=== PATIENT | male | born 1965 | race Caucasian/White ===

== ENCOUNTER 2016-06-16 13:48 | Emergency (ER) | payer OTHER ==
[~2016-06-16] VITALS: Ht 175.3 cm; Wt 81.6 kg
--- NOTE | 2016-06-16 15:04 | RADIOLOGY REPORT ---
EXAMINATION: XR KNEE, RIGHT CLINICAL INFORMATION: Pain to right knee. COMPARISON: None TECHNIQUE: Four views of the right knee. FINDINGS: No acute fracture or subluxation. Compartmental joint spaces are maintained. Small joint effusion. Small tricompartmental marginal osteophytes. The soft tissues are unremarkable. IMPRESSION: Mild tricompartmental degenerative changes with small joint effusion.
[2016-06-16 15:59] VITALS: BP 140/88
[2016-06-16] MEDS ORDERED: ADVIL200 M1 PO (16:36)
--- NOTE | 2016-06-16 16:37 | ED UPPER/LOWER EXTREMITY COMPL ---
History of Present Illness General Chief Complaint: Lower Extremity Problems Stated Complaint: R KNEE PAIN X 4 WEEKS NO KNOWN INJURY Source: patient Exam Limitations: no limitations Vital Signs & Intake/Output Vital Signs & Intake/Output Vital Signs Date Time Temp Pulse Resp B/P Pulse O2 O2 Flow FiO2 Ox Delivery Rate 06/16 1700 Room Air 06/16 1559 96.9 60 140/88 06/16 1357 97.0 80 20 143/92 98 Room Air Allergies Coded Allergies: No Known Allergies (06/16/16) Reconcile Medications Ibuprofen (Advil) 200 MG CAPSULE 2 CAP PO PRN PAIN (Reported) Meloxicam (Mobic) 15 MG TABLET 1 TAB PO DAILY PRN PAIN/INFLAMMATION Triage Note: PT PRESENTS TO ER C/O OF RIGHT KNEE PAIN X 4 WEEKS. PT DENIES INJURY OR TRAUMA TO KNEE PT REFUSING PAIN MEDS AT TRIAGE Triage Nurses Notes Reviewed? yes Onset: Gradual Duration: week(s): (4) Timing: remote history Severity: mild Severity Numbers: 3 Pain/Injury Location: Right: Knee. Method of Injury: TWISTED Modifying Factors: Improves With: immobilization. Worsens With: movement. HPI: Patient is a 51-year-old male presenting to the emergency department with chief complaint of right knee pain 4 weeks. Patient reports that is on the ice and twisted his right knee 4 weeks ago. Has been experiencing pain on the medial aspect of his right knee since. Denies any falls. He's been icing with little relief. He's been taking ibuprofen without change in symptoms. Denies any numbness or tingling. Denies any radiating pain. Denies any fevers or chills nausea or vomiting. Denies any redness over the knee. History similar injury on his left knee several years ago. (JEANCARLOS ALTAMIRANO) Past History Travel History Traveled to [place] past 21 day No Medical History Any Pertinent Medical History? see below for history Neurological: NONE EENT: NONE Cardiovascular: NONE Respiratory: NONE Gastrointestinal: NONE Hepatic: NONE Renal: NONE Musculoskeletal: NONE Psychiatric: NONE Endocrine: NONE Tetanus Vaccine: 12/25/14 Surgical History Surgical History: non-contributory Psychosocial History What is your primary language Vietnamese Tobacco Use: Never used Family History Hx Contributory? No (JEANCARLOS ALTAMIRANO) Review of Systems Review of Systems Constitutional: Reports: no symptoms. Comments Review of systems: See HPI, All other systems negative. Constitutional, no chills fever or weight loss HEENT: No visual changes no sore throat no congestion Cardiovascular: No chest pain ,palpitation Skin, no jaundice no rashes Respiratory: No dyspnea cough sputum or hemoptysis GI: No nausea no vomiting Muscle skeletal: no back pain, no neck pain, Neurologic: No numbness no confusion Psych: No stress anxiety Immunology: No splenectomy or history of AIDS (JEANCARLOS ALTAMIRANO) Physical Exam Physical Exam General Appearance: well developed/nourished, no apparent distress, alert, awake , comfortable Comments: Well-developed well-nourished no apparent distress. HEENT: Atraumatic, extraocular motion intact Neck: Supple, no lymphadenopathy Back: Nontender Respiratory: No respiratory distress Extremities: No edema, full range of motion. Tender to palpation of the medial aspect of the right knee. Full range of motion of the right knee. No pain to palpation over the popliteal region of the right lower extremity. No calf pain to palpation bilaterally. Pedal pulses are 2+ bilaterally. No erythema or edema noted over the right patella. No ecchymosis. Positive Jeff's on the right lower extremity. Neuro: Alert and oriented x3, motor and sensory intact in lower extremities bilaterally. Psych: Mood affect normal, normal memory normal judgment. (JEANCARLOS ALTAMIRANO) Progress Differential Diagnosis: contusion, dislocation, fracture, septic arthritis, sprain, tendon injury Plan of Care: Orders Procedure Date/time Status Durable Medical Equipment 06/16 1641 Active Diagnostic Imaging: Viewed by Me: Radiology Read. Discussed w/RAD: Radiology Read. Radiology Impression: PATIENT: ZEN LOPEZ PRESENT AGE: 51 PATIENT ACCOUNT NO: [id number] : 67 LOCATION: [facility] ORDERING PHYSICIAN: JUSTICE COULTER DO (TBS) SERVICE DATE: 06/16/16-8414 EXAM TYPE: RAD - XRY-KNEE COMPLETE RIGHT EXAMINATION: XR KNEE, RIGHT CLINICAL INFORMATION: Pain to right knee. COMPARISON: None TECHNIQUE: Four views of the right knee. FINDINGS: No acute fracture or subluxation. Compartmental joint spaces are maintained. Small joint effusion. Small tricompartmental marginal osteophytes. The soft tissues are unremarkable. IMPRESSION: Mild tricompartmental degenerative changes with small joint effusion. DICTATED BY: JOSEPHINE ALCANTARA, BRAULIO DATE/TIME DICTATED:06/16/16 1458 DIETARY COOK:JOVAN Comments: 06/16/2016 4:44:40 PM he declined pain medication and arrival. He was informed of x-ray results. History correlates with injury. No signs of cellulitis or infection over the right patella. Full range of motion. Likely strain or sprain. Patient will need further assessment with MRI. He'll be started on Mobic. (JEANCARLOS ALTAMIRANO) Departure Departure Time of Disposition: 1640 Disposition: HOME OR SELF CARE Condition: Stable Clinical Impression Primary Impression: Knee sprain Qualifiers: Encounter type: initial encounter Involved ligament of knee: unspecified ligament Laterality: right Qualified Code: S83.91XA - Sprain of unspecified site of right knee, initial encounter Referrals: PATIENT HAS NO PRIMARY CARE DR (PCP/Family) SAVANNAH ALCANTARA,JERI Webster Additional Instructions: Follow-up with orthopedics if symptoms persist he may need MRI. Wear knee immobilizer for support. Rest ice and elevate. Take Mobic as prescribed. Return for worsening symptoms or concerns. Departure Forms: Customer Survey General Discharge Information Prescriptions: Current Visit Scripts Meloxicam (Mobic) 1 TAB PO DAILY PRN PAIN/INFLAMMATION #20 TAB (JEANCARLOS ALTAMIRANO) PA/SIGNS CLEANER Co-Sign Statement Statement: ED Attending supervision documentation- [] I saw and evaluated the patient. I have also reviewed all the pertinent lab results and diagnostic results. I agree with the findings and the plan of care as documented in the PA's/SIGNS CLEANER's documentation. [X] I have reviewed the ED Record and agree with the PA's/SIGNS CLEANER's documentation. [] Additions or exceptions (if any) to the PAs/SIGNS CLEANER's note and plan are summarized below: [] (JUSTICE COULTER DO
[2016-06-16] MEDS ORDERED: MOBIC15 M1 PO (16:41)
== END 2016-06-16 17:45 ==
LOC: ERH 13:48
DX: S83.91XA Sprain of unspecified site of right knee, initial encounter (principal); W00.0XXA Fall on same level due to ice and snow, initial encounter; Y92.9 Unspecified place or not applicable; Y93.9 Activity, unspecified
CPT/HCPCS: 73562-RT